=== PATIENT | male | born 1980 | race Caucasian/White ===

== ENCOUNTER 2017-01-19 23:44 | Emergency (ER) | payer OTHER ==
[~2017-01-19] VITALS: Ht 180.3 cm; Wt 106.0 kg
[~2017-01-19 23:44] MED LIST: IBUP800T25 PO; OXYC-282 PO
[2017-01-20 00:03] VITALS: Ht 180.3 cm; Wt 106.0 kg
[2017-01-20] MEDS ORDERED: DIPHTH/TET/ACEL PERTUSS (ADULT) 0.5 ML VIAL IM* ONE (01:30)
--- NOTE | 2017-01-20 01:43 | ERD ---
ER Documentation Chief Complaint Date/Time DATE: 01/20/17 TIME: 01:38 Chief Complaint right arm LAC S/P tripped and fell landed on the right arm HPI 36-year-old male presents here in emergency department for complaints of right arm laceration wound after tripping and falling out of his car today. Patient denies any syncopal episode. Patient denies any other injuries. Patient is able to move the joints of the right arm without any retraction, patient denies any joint pains. Patient's complaining of pain on the laceration wound, sharp pain 4 /10 scale, is worse upon touching the area, bleeding is controlled at this time. Patient denies any numbness or tingling. Patient did not take any medications for pain. ROS All systems reviewed and are negative except as per history of present illness. Medications Home Meds Active Scripts Cephalexin* (Keflex*) 500 Mg Capsule, 500 MG PO QID for 5 Days, CAP Prov:JANEL CONNORS PRODUCTION EXPEDITER 01/20/17 Ibuprofen* (Motrin*) 600 Mg Tab, 600 MG PO Q6H Y for PAIN AND OR ELEVATED TEMP, #30 TAB Prov:JANEL CONNORS PRODUCTION EXPEDITER 01/20/17 Ibuprofen* (Motrin*) 800 Mg Tab, 800 MG PO Q8 Y for PAIN AND OR ELEVATED TEMP, # 21 TAB Prov:DEYA HAN. 06/13/15 Oxycodone Hcl-Acetaminophen* (Percocet*) 2.5-325 Mg Tablet, 1 TAB PO Q6 Y for PAIN, #10 TAB Prov:DEYA HAN 06/13/15 Allergies Allergies: Coded Allergies: hydrocodone (Verified Allergy, Unknown, 06/13/15) PMhx/Soc Unknown last tetanus immunization Medical and Surgical Hx: pt denies Medical Hx History of Surgery: Yes (Rt shoulder, rt knee) Anesthesia Reaction: No Hx Neurological Disorder: No Hx Respiratory Disorders: No Hx Cardiac Disorders: No Hx Psychiatric Problems: No Hx Miscellaneous Medical Probl: No Hx Alcohol Use: Yes Hx Substance Use: No Hx Tobacco Use: No Smoking Status: Never smoker FmHx Family History: No coronary disease, No diabetes, No other Physical Exam Vitals Vital Signs Date Time Temp Pulse Resp B/P Pulse Ox O2 Delivery O2 Flow Rate FiO2 01/20/17 00:03 96.9 84 16 133/63 100 Physical Exam GENERAL: The patient is well developed and appropriate for usual state of health, in no apparent distress. CHEST: Clear to auscultation bilaterally. There are no rales, wheezes or rhonchi. HEART: Regular rate and rhythm. No murmurs, clicks, rubs or gallops. No S3 or S4. ABDOMEN: Soft, nontender and nondistended. Good bowel sounds. No rebound or guarding. No gross peritonitis. No gross organomegaly or masses. No Burgos sign or McBurney point tenderness. BACK: No midline or flank tenderness. EXTREMITIES: Equal pulses bilaterally. There is no peripheral clubbing, cyanosis or edema. No focal swelling or erythema. Full range of motion. Grossly neurovascularly intact. NEURO: Alert and oriented. Cranial nerves 2-12 intact. Motor strength in all 4 extremities with 5/5 strength. Sensation grossly intact. Normal speech and gait. SKIN: 3.5 cm laceration wound noted in the right forearm, no muscle or tendon involvement. Bleeding is controlled at this time, no foreign body noted. There is no apparent acting normal or petechia. The skin is warm and dry. HEMATOLOGIC AND LYMPHATIC: There is no evidence of excessive bruising or lymphedema. No gross cervical, axillary, or inguinal lymphadenopathy. Results 24 hrs Current Medications Medications (Trade) Dose Ordered Sig/Kwabena Route PRN Reason Start Time Stop Time Status Last Admin Dose Admin Diphtheria/ Tetanus/Acell Pertussis (Adacel) 0.5 ml ONCE ONCE IM* 01/20/17 01:30 01/20/17 01:31 DC 01/20/17 01:27 Lidocaine (Xylocaine 1% (Mdv) 20 ml) 2 ml ONCE ONCE SC 01/20/17 02:00 01/20/17 02:01 DC Tdap was given to prevent tetanus. Patient tolerated medication well. Procedures/MDM Procedure Note: After obtaining informed consent, the wound was irrigated with 250 ml of normal saline and cleaned with diluted betadine. Using aseptic technique, 3 ml of 1% lidocaine was injected on the subcutaneous tissue of the laceration wound for anesthetic. After the anesthetic, the wound was approximated using 5 interrupted sutures of 3-0 Prolene . After the procedure, the wound was well approximated. Patient tolerated procedure well. Bacitracin was applied on the area and a dry dressing. Medical Decision Making: Patient's pain is most likely consistent with a contusion or a sprain. There is no suspicion for neurovascular compromise. Patient has intact sensation and circulation of the affected extremity. There is low suspicion for septic arthritis. Patient does not have any fever. Radiology exams of the affected area does not show any fracture or dislocation. Disposition: Home. Patient is given prescription for ibuprofen for pain, Keflex to prevent infection. Patient was advised to do wound care on affected area. Patient was advised that if symptoms are worse, gaping of the wound high fever or purulent discharge, worsening symptoms, to return to emergency department immediately. Otherwise, patient is advised to follow up with the primary care doctor in 2 days for wound check, removal of sutures in 7-10 days. Departure Diagnosis: Primary Impression: Laceration of right forearm Encounter type: initial encounter Qualified Code: S51.811A - Laceration of right forearm, initial encounter Condition: Stable Patient Instructions: Laceration, Extrem (Suture, Staple, Or Tape) JANEL CONNORS NP January 20, 2017 01:43
[2017-01-20] MEDS ORDERED: LIDOCAINE 1% (MDV) 20 ML INJ SC ONE (02:00)
[2017-01-20] MEDS ORDERED: IBUP-1542 PO (02:36)
[2017-01-20] MEDS ORDERED: CEPH-443 PO (02:36)
== END 2017-01-20 02:49 | disposition home or self-care (01) ==
LOC: FTE 23:44
DX: S51.811A Laceration without foreign body of right forearm, initial encounter (principal); R55 Syncope and collapse; W01.0XXA Fall on same level from slipping, tripping and stumbling without subsequent striking against object, initial encounter; Y92.9 Unspecified place or not applicable; Z23 Encounter for immunization
CPT/HCPCS: 12002; 90471; 90715; 93005; Z7502; Z7610

== ENCOUNTER 2018-01-16 22:06 | Emergency (ER) | END 2018-01-17 03:42 | disposition home or self-care (01) ==

== ENCOUNTER 2018-11-07 16:31 | Emergency (ER) | payer OTHER ==
[~2018-11-07] VITALS: Ht 177.8 cm; Wt 127.9 kg
[~2018-11-07 16:31] MED LIST changes: +CEPH-443 PO; +HYDR-4011 PO; +IBUP-1542 PO; -IBUP800T25 PO; +IBUP800T48 PO
[2018-11-07 16:37] VITALS: Ht 177.8 cm; Wt 127.9 kg
[2018-11-07] MEDS ORDERED: KETOROLAC 15 MG INJ IV STA (18:51)
[2018-11-07] MEDS ORDERED: SOD CHLORIDE 0.9% 1,000 ML IV STA (18:51)
[2018-11-07] MEDS ORDERED: ONDANSETRON 4 MG INJ IV STA (18:51)
--- NOTE | 2018-11-07 18:59 | ERD ---
ER Documentation Chief Complaint Chief Complaint BLOOD IN URINE 4 DAYS WITH FLANK PAIN HPI Patient is a 38-year-old male with history of marijuana use and chronic back low back pain who presents with history presents to the ED with complaints of sudden onset, sharp right flank pain for the past 3 days. Pain has been getting progre ssively worse, and is now radiating towards his right inguinal region. Patient also reports associated dysuria and hematuria which he noticed today. He states Percocet has helped with severe pain in the past. Denies any fevers, chills, nausea, vomiting, abdominal pain, chest pain, shortness of breath. Denies testicular pain, penile pain, penile discharge, urgency, frequency or any other symptoms. Denies any history of similar pain. ROS All systems reviewed and are negative except as per history of present illness. Medications Home Meds Active Scripts Oxycodone HCl/Acetaminophen (Percocet 2.5-325 mg Tablet) 1 Each Tablet, 1 EACH PO Q6 for pain, #10 TAB Prov:RENA SMITHC 11/07/18 Ibuprofen* (Ibuprofen*) 600 Mg Tablet, 600 MG PO Q6, #30 TAB Prov:RENA SMITHC 11/07/18 Ibuprofen* (Motrin*) 600 Mg Tab, 600 MG PO Q6, #30 TAB Prov:MARIANA BARON PA-C 01/17/18 Hydrocodone/Acetaminophen (Marana 5-325 Tablet) 1 Each Tablet, 1 TAB PO Q6H PRN for PAIN, #10 TAB Prov:MARIANA BARON PA-C 01/17/18 Cephalexin* (Keflex*) 500 Mg Capsule, 500 MG PO QID for 5 Days, CAP Prov:JANEL CONNORS CABLE SPLICING TECHNICIAN 01/20/17 Ibuprofen* (Motrin*) 600 Mg Tab, 600 MG PO Q6H PRN for PAIN AND OR ELEVATED TEMP, #30 TAB Prov:JANEL CONNORS CABLE SPLICING TECHNICIAN 01/20/17 Ibuprofen* (Motrin*) 800 Mg Tab, 800 MG PO Q8 PRN for PAIN AND OR ELEVATED TEMP, #21 TAB Prov:DEYA HAN 06/13/15 Oxycodone Hcl-Acetaminophen* (Percocet*) 2.5-325 Mg Tablet, 1 TAB PO Q6 PRN for PAIN, #10 TAB Prov:DEYA HAN 06/13/15 Allergies Allergies: Coded Allergies: hydrocodone (Verified Allergy, Unknown, 06/13/15) PMhx/Soc History of Surgery: Yes (R Shoulder/Knee,Gastric Bypass) Anesthesia Reaction: No Hx Neurological Disorder: No Hx Respiratory Disorders: No Hx Cardiac Disorders: No Hx Psychiatric Problems: No Hx Miscellaneous Medical Probl: No Hx Alcohol Use: Yes (Occasionally) Hx Substance Use: Yes (Marijuana) Hx Tobacco Use: Yes Smoking Status: Current some day smoker Physical Exam Vitals Vital Signs Date Temp Pulse Resp B/P (MAP) Pulse Ox O2 O2 Flow FiO2 Time Delivery Rate 11/07/18 98.6 76 20 136/84 99 Room Air 21:39 (101) 11/07/18 98.0 56 18 144/68 97 16:37 (93) Physical Exam Const: Appears in mild distress, unable to find a comfortable position. Head: Atraumatic Eyes: Normal Conjunctiva ENT: Normal External Ears, Nose and Mouth. Neck: Full range of motion. No meningismus. Resp: Clear to auscultation bilaterally Cardio: Regular rate and rhythm, no murmurs Abd: Soft, non tender, non distended. Normal bowel sounds Skin: No petechiae or rashes Back: No midline. + Right CVA tenderness. Ext: No cyanosis, or edema Neur: Awake and alert Psych: Normal Mood and Affect Result Diagram: 11/07/18190211/07/181902 Results 24 hrs Laboratory Tests Test 11/07/18 19:03 White Blood Count 7.4 10^3/ul Red Blood Count 4.65 10^6/ul Hemoglobin 14.3 g/dl Hematocrit 43.6 % Mean Corpuscular Volume 93.8 fl Mean Corpuscular Hemoglobin 30.8 pg Mean Corpuscular Hemoglobin Concent 32.8 g/dl Red Cell Distribution Width 12.3 % Platelet Count 247 10^3/UL Mean Platelet Volume 9.6 fl Immature Granulocytes % 0.400 % Neutrophils % 63.0 % Lymphocytes % 27.8 % Monocytes % 5.8 % Eosinophils % 2.6 % Basophils % 0.4 % Nucleated Red Blood Cells % 0.0 /100WBC Immature Granulocytes # 0.030 10^3/ul Neutrophils # 4.7 10^3/ul Lymphocytes # 2.1 10^3/ul Monocytes # 0.4 10^3/ul Eosinophils # 0.2 10^3/ul Basophils # 0.0 10^3/ul Nucleated Red Blood Cells # 0.0 10^3/ul Urine Color YELLOW Urine Clarity CLEAR Urine pH 5.0 Urine Specific [place] 1.017 Urine Ketones NEGATIVE mg/dL Urine Nitrite NEGATIVE mg/dL Urine Bilirubin NEGATIVE mg/dL Urine Urobilinogen 1+ mg/dL Urine Leukocyte Esterase NEGATIVE [place]/ul Urine Microscopic RBC 65 /HPF Urine Microscopic WBC 1 /HPF Urine Bacteria FEW /HPF Urine Hemoglobin 2+ mg/dL Urine Glucose NEGATIVE mg/dL Urine Total Protein NEGATIVE mg/dl Sodium Level 143 mmol/L Potassium Level 4.0 mmol/L Chloride Level 100 mmol/L Carbon Dioxide Level 28 mmol/L Anion Gap 15 Blood Urea Nitrogen 12 mg/dl Creatinine 0.77 mg/dl Est Glomerular Filtrat Rate mL/min > 60 mL/min Glucose Level 92 mg/dl Calcium Level 9.3 mg/dl Total Bilirubin 0.1 mg/dl Direct Bilirubin 0.00 mg/dl Indirect Bilirubin 0.1 mg/dl Aspartate Amino Transf (AST/SGOT) 25 IU/L Alanine Aminotransferase (ALT/SGPT) 19 IU/L Alkaline Phosphatase 67 IU/L Total Protein 8.1 g/dl Albumin 4.6 g/dl Globulin 3.50 g/dl Albumin/Globulin Ratio 1.31 Current Medications Medications Dose Sig/Kwabena Start Time Status Last (Trade) Ordered Route PRN Stop Time Admin Dose Reason Admin Sodium 1,000 ml @ Q1H STAT 11/07/18 DC 11/07/18 Chloride 1,000 mls/hr IV 18:51 19:08 11/07/18 19:50 Ondansetron 4 mg ONCE STAT 11/07/18 DC 11/07/18 HCl (Zofran IV 18:51 19:08 Inj) 11/07/18 18:57 Ketorolac 15 mg ONCE STAT 11/07/18 DC 11/07/18 Tromethamine IV 18:51 19:09 (Toradol) 11/07/18 18:57 Morphine 2 mg ONCE STAT 11/07/18 DC 11/07/18 Sulfate IV 19:53 20:20 (morphine) 11/07/18 19:55 25 mg ONCE ONCE 11/07/18 DC 11/07/18 Diphenhydrami IV 20:00 20:20 ne HCl 11/07/18 20:01 (Benadryl) Morphine 2 mg ONCE STAT 11/07/18 DC 11/07/18 Sulfate IV 21:02 21:15 (morphine) 11/07/18 21:03 Procedures/MDM EMERGENT LABS AND DIAGNOSTIC STUDIES: Lab Results above were reviewed and interpreted by me as below. CBC: no e/o of systemic infection or severe anemia CMP: no e/o severe acidosis, alkalosis, renal failure, diabetic ketoacidosis, liver disease Urine: hematuria and few bacteria Otherwise within normal limits, unremarkable or as documented above. Radiology Results as interpreted by Radiology: PROCEDURE: CT Abdomen and Pelvis without contrast. CLINICAL INDICATION: Abdominal pain. TECHNIQUE: Unenhanced CT scan of the abdomen and pelvis was performed on a multi-detector high-resolution CT scanner. Coronal and sagittal reformatted images were obtained from the axial source images. Images were reviewed on a high-resolution PACS workstation. The total exam CTDI equals 22.3 mGy and the total exam DLP equals 1781.0 mGy-cm. DICOM images are available. One or more of the following dose reduction techniques were utilized: 1.) Automated exposure control 2.) Adjustment of the mA +/- kV according to patient's size 3.) Use of iterative reconstruction technique. COMPARISON: Chest x-ray 01/17/2018. FINDINGS: Evaluation of the soft tissues and viscera is limited in the absence of contrast. Partially visualized mild bibasilar pulmonary subsegmental atelectasis, worse on the right where there is stable mild elevation of the hemidiaphragm. Heart base appears normal. Systemic vasculature appears grossly normal. No pathologic lymphadenopathy identified by imaging criteria. Liver is upper limits of normal in size without identifiable focal mass lesion in the absence of intravenous contrast. Gallbladder is moderately distended without identifiable pericholecystic inflammatory change or extrahepatic biliary ductal dilatation. Pancreas demonstrates normal contour, without identifiable peripancreatic inflammatory change. Spleen is normal in size. Adrenal glands appear normal. 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 Bowel is unobstructed without free air, free fluid or focal mesenteric inflammatory change. Appendix appears normal. Few scattered tiny left colonic diverticuli without evidence of acute diverticulitis. Question focal asymmetric left rectal wall thickening (axial image 192, coronal image 85, sagittal image 84), which may be entirely artifactual related to incomplete distension and heterogeneous stool content. Kidneys demonstrate normal size, contour and orientation without identifiable focal mass lesion in the absence of intravenous contrast. No nephrolithiasis nor hydronephrosis. The ureters run unobstructed to a normal - appearing mildly distended bladder. Prostate gland appears normal. Multiple cutaneous calcified nodules measuring up to 10 mm noted at the distal penis (axial image 250, coronal image 33, sagittal image 84). Osseous structures are intact with minimal chronic anterior wedging deformity of the T9, T10 and T11 vertebral bodies which may reflect a physiologic variant or chronic post-traumatic sequelae. Mild diffuse developmental narrowing of the lumbar canal related to vertebral morphology with shortened pedicles, with superimposed multilevel spondylotic changes which appear most pronounced at L4-5 where there is probably mild focal midline canal stenosis with moderate narrowing of the bilateral subarticular recesses and neural foramina, suboptimally evaluated by CT. Tiny fatty umbilical hernia. IMPRESSION: 1. Question focal asymmetric left rectal wall thickening, which may be entirely artifactual related to incomplete distension and heterogeneous stool content. Neoplastic, infectious or inflammatory process not excluded. Clinical correlation recommended with consideration for further evaluation with proctoscopy. 2. Chronic postsurgical changes of prior gastric bypass procedure with small hiatal hernia involving the gastric cardia just proximal to the gastrojejunostomy. 3. Minimal left colonic diverticulosis without evidence of acute diverticulitis. The bowel is unobstructed without evidence of perforation or abscess, and the appendix appears normal. 4. Liver is upper limits of normal in size. 5. No nephrolithiasis nor hydronephrosis. 6. Multiple distal penile cutaneous calcified nodules. Clinical correlation with direct visualization recommended. 7. Mild diffuse developmental narrowing of the lumbar canal with multilevel spondylotic changes which appear most pronounced at L4-5 where there is probably mild focal midline canal stenosis with moderate narrowing of the bilateral subarticular recesses and neural foramina. This can be better evaluated with MRI L-spine if clinically warranted. RPTAT: HSAN Phil Mcfadden Physician Date Time Electronically viewed and signed by Phil Mcfadden Physician on 11/07/2018 20:34 Nursing Notes Reviewed. Previous Medical Records requested via the Electronic Health Record. EMERGENCY DEPARTMENT COURSE / MEDICAL DECISION MAKING: Patient is a 38-year-old male presents the ED with complaints of right flank pain along with hematuria and dysuria concerning for nephrolithiasis. Patient has no symptoms of surgical abdomen on physical exam. CBC, CMP were done and revealed no evidence of acute renal injury. CT of the abdomen was negative for any stones. However, given patient's clinical pictures and UA revealing hematur ia and RBCs, I will treat patient for nephrolithiasis. It is possible that patient has passed his kidney stone while here. On reevaluation, patient's pain had improved status post IV fluids, Toradol, Zofran and morphine. At this time, there is no evidence of renal injury, obstruction, hydronephrosis, sepsis or any other emergent process. He was given copies of his results and was told to follow-up with his primary care physician in 2 days. Patient states he made an appointment to see his primary care in 2 months however I recommended he be seen sooner for re-evaluation. The [facility] database shows no history of opioid abuse therefore I have decided to discharge him with a prescription for Ibuprofen as well as some percocet which patient has previously tolerated without any allergic reactions. Told to increase his fluids at home. Return to the ED for any new or worsening symptoms. DISPOSITION PLAN: We discussed follow up with the patient's primary care doctor within 24 to 48 hours. Patient counseled regarding my diagnostic impression and care plan. Prior to discharge all questions answered. Pt agrees with treatment plan and understands strict return precautions. Precautionary instructions provided including instructions to return to the ER if not improving or for any worsening or changing symptoms or concerns. Prior to discharge, patients vital signs have been reviewed SPECIALIST FOLLOW UP RECOMMENDED: None Patient has been advised to follow up with primary care in 1-2 days. Blood Pressure Assessment: Patient's blood pressure was elevated (>120/80) but appears stable without evidence of hypertension emergency or urgency. The patient was counseled about the risks of hypertension and urged to pursue outpatient monitoring and therapy within a week with their primary care physician. Departure Diagnosis: Primary Impression: Right flank pain Additional Impression: Hematuria Condition: Stable Patient Instructions: Flank Pain, Uncertain Cause [facility] RENA SMITH PA-C Nov 07, 2018 18:59
[2018-11-07] MEDS ORDERED: morphine 2 MG INJ IV STA ×2 (19:53→21:02)
[2018-11-07] MEDS ORDERED: DIPHENHYDRAMINE 50 MG INJ IV ONE (20:00)
[2018-11-07] MEDS ORDERED: OXYC-282 PO (21:24)
[2018-11-07] MEDS ORDERED: IBUP-1542 PO (21:24)
[2018-11-07 21:39] VITALS: BP 136/84; PULSE 76; RESP 20
[2018-11-10] MEDS ORDERED: OXYC-279 PO (17:50)
== END 2018-11-07 21:40 | disposition home or self-care (01) ==
LOC: FTE 16:31
DX: R10.9 Unspecified abdominal pain (principal); F17.210 Nicotine dependence, cigarettes, uncomplicated
CPT/HCPCS: 36415; 74176; 80053; 81001; 85025; 96374; 96375; 96376; J1200; J1885; J2270; J2405; J7030; Z7502